=== PATIENT | female | born 1990 | race Caucasian/White ===

== ENCOUNTER 2021-11-09 21:01 | Emergency (ER) | payer OTHER ==
[~2021-11-09] VITALS: Ht 162.6 cm; Wt 105.2 kg
[~2021-11-09 21:01] MED LIST: ACETAMINOPHEN-1 EAC1; BACTRIM DS TAB1 EACH PO; CLEOCIN HCL300 MG PO; IBUPROFEN 800800 M1; NOHOMEMEDICATIONS; STERAPRED DS10 MG PO
[2021-11-09 21:52] LABS: AMP/METHAMP Negative (Negative); BARBITURATES Negative (Negative); BENZODIAZEPINES Negative (Negative); COCAINE Negative (Negative); METHADONE Negative (Negative); OPIATES Negative (Negative); PCP Negative (Negative); THC Negative (Negative)
[2021-11-09 22:26] LABS: URINE BILIRUBIN NEGATIVE (Negative); URINE BLOOD NEGATIVE (Negative); URINE CLARITY CLEAR; URINE COLOR YELLOW; URINE GLUCOSE-RANDOM NEGATIVE (Negative); URINE KETONES NEGATIVE (Negative); URINE LEUKOCYTES-REFLEX NEGATIVE (Negative); URINE NITRITE-REFLEX NEGATIVE (Negative); URINE PROTEIN NEGATIVE (Negative); URINE SPECIFIC GRAVITY >= 1.030 (1.005-1.030); URINE UROBILINOGEN 0.2 E.U./dl (0.2-1.0)
[2021-11-09 23:36] VITALS: BP 121/78
== END 2021-11-09 23:34 | disposition home or self-care (01) ==
LOC: M.ERS 21:01
PROVIDERS: Personal Emergency Response Attendant
DX: S01.81XA Laceration without foreign body of other part of head, initial encounter (principal); F10.920 Alcohol use, unspecified with intoxication, uncomplicated; Z98.890 Other specified postprocedural states; Y90.6 Blood alcohol level of 120-199 mg/100 ml; W22.8XXA Striking against or struck by other objects, initial encounter; Y93.89 Activity, other specified; Y92.89 Other specified places as the place of occurrence of the external cause; Y99.8 Other external cause status